=== PATIENT | male | born 1955 | race Asian ===

== ENCOUNTER 2017-01-21 16:18 | Inpatient (IN) | payer SELFPAY ==
[~2017-01-21] VITALS: Ht 172.7 cm; Wt 82.9 kg
[2017-01-21] MEDS ORDERED: OLME20TA PO (16:58)
[2017-01-21 17:07] LABS: ASPARTATE AMINO TRANSFERASE 41 U/L (15-37); BLOOD UREA NITROGEN 18 mg/dL (7-18)
[2017-01-21 17:14] LABS: IS PT STATUS REG ER OR PRE ER? YES
[2017-01-21] MEDS ORDERED: NITROGLYCERIN SINGLE TAB 0.4 MG SL PRN (17:30)
[2017-01-21] MEDS ORDERED: ASPIRIN 81 MG TABLET CHEW PO ONE (17:30)
[2017-01-21] MEDS ORDERED: NITROGLYCERIN SINGLE TAB 0.4 MG SL ONE (17:39)
[2017-01-21] MEDS ORDERED: ASPIRIN 81 MG TABLET CHEW ONE (17:40)
[2017-01-21] MEDS ORDERED: SODIUM CHLORIDE FLUSH 10ML SYR IVF PRN (18:30)
[2017-01-21] MEDS ORDERED: ENOXAPARIN 40 MG/0.4 ML SQ SCH (20:30)
[2017-01-21] MEDS ORDERED: ACETAMINOPHEN 325 MG TABLET PO PRN (20:30)
[2017-01-21 21:06] LABS: IS PT STATUS REG ER OR PRE ER? YES
[2017-01-21 23:00] VITALS: BP 116/75
[2017-01-22 02:47] VITALS: BP 115/77
[2017-01-22 03:21] LABS: IS PT STATUS REG ER OR PRE ER? NO
[2017-01-22 07:58] VITALS: BP 97/56
[2017-01-22] MEDS ORDERED: REGADENOSON 0.4 MG/5 ML SYRINGE ONE (08:35)
[2017-01-22] MEDS ORDERED: LOSARTAN 50MG TABLET PO SCH (09:00)
[2017-01-22 13:17] VITALS: BP 118/78
[2017-01-22] MEDS ORDERED: FENO40TA4 PO (15:40)
== END 2017-01-22 18:05 | disposition home or self-care (01) | DRG 310 ==
LOC: ED 19:08 → EDIP 19:25 → 5SO 22:16
PROVIDERS: ADMIT Internal Medicine; ATTEND Internal Medicine
DX: I49.3 Ventricular premature depolarization (principal); I10 Essential (primary) hypertension; E78.5 Hyperlipidemia, unspecified; K21.9 Gastro-esophageal reflux disease without esophagitis; E78.1 Pure hyperglyceridemia; Z90.49 Acquired absence of other specified parts of digestive tract; Z82.49 Family history of ischemic heart disease and other diseases of the circulatory system
CPT/HCPCS: 36415; 71020; 78452; 80053; 80061; 83735; 83880; 84100; 84439; 84443; 84484; 85025; 93005; 93017; 93306; 99285; J1650; J2785; A9502; C9898